=== PATIENT | female | born 1935 | race American Indian/Alaskan Native ===

== ENCOUNTER 2020-05-27 14:00 | Outpatient (CLI) | payer MEDICARE ==
--- NOTE | 2020-05-27 15:20 | XRay Report ---
CHEST 2 VIEWS INDICATION / CLINICAL INFORMATION: PRE OP EXAM [id number]. Dyspnea. FINDINGS: SUPPORT DEVICES: None. HEART / MEDIASTINUM: No significant abnormality. LUNGS / PLEURA: No significant pulmonary or pleural abnormality. No pneumothorax. ADDITIONAL FINDINGS: No significant additional findings. IMPRESSION: 1. No acute findings. Signer Name: Martín Alfredo MD Signed: 05/27/2020 3:15 PM Workstation Name: [id number]
== END 2020-05-27 14:01 | disposition home or self-care (01) ==
LOC: SPVIMAG 14:00
PROVIDERS: ATTEND Internal Medicine
DX: Z01.818 Encounter for other preprocedural examination (principal)
CPT/HCPCS: 71046